=== PATIENT | male | born 1985 | race Caucasian/White ===

== ENCOUNTER 2022-11-20 16:05 | Observation (INO) ==
[2022-11-20] MEDS ORDERED: Acetaminophen IV 1 GM/100ML 1,000 MG/100 ML BAG IV ONE (16:38)
[2022-11-20] MEDS ORDERED: Ondansetron 4 mg VIAL 2 MG/ML 2 ml VIAL IV ONE (16:39)
[2022-11-20] MEDS ORDERED: Lorazepam PYXIS KEY PRN (16:40)
[2022-11-20] MEDS ORDERED: LORazepam 2 mg VIAL 1 ml IV PUSH ONE (16:40)
[2022-11-20 18:44] LABS: ABS Eosinophils 0.1 10^3/uL (0.0-0.5); ABS Lymphocytes 1.1 10^3/uL (1.0-4.8); ABS Monocytes 0.3 10^3/uL (0.0-1.1); ABS Neutrophils 5.2 10^3/uL (1.5-7.6); ABS Nucleated RBC 0.01 10^3/ul; Eosinophil % 1.5 %; Hematocrit 43.4 % (38-53); Hemoglobin 14.7 g/dL (13.2-16.3); Lymphocyte % 16.4 %; Mean Corpuscular Hemoglobin 30.2 pg (27-33); Mean Corpuscular Hgb Conc 33.9 g/dL (31-36); Mean Corpuscular Volume 89.1 fL (80-97); Mean Platelet Volume 7.5 fL (7.5-11.2); Nucleated Red Blood Cells % 0.1 /100 WBC (0.0-0.4); Platelet Count 289 10^3/uL (150-450); Red Blood Count 4.88 10^6/uL (4.06-5.63); Red Cell Distribution Width 13.4 % (12-17); White Blood Count 6.8 10^3/uL (3.6-10.2)
[2022-11-20 19:04] LABS: Albumin 4.8 g/dL (3.2-5.2); Albumin/Globulin Ratio 1.6 (1-3); C Reactive Protein 1.13 mg/L (<8.01); Calcium 10.4 mg/dL (8.6-10.3); Creatinine, Serum 0.97 mg/dL (0.67-1.17); Potassium 4.2 mmol/L (3.5-5.0); Total Bilirubin 1.2 mg/dL (0.2-1.0); Total Protein 7.8 g/dL (6.4-8.9); eGFR CKD-EPI 103.8 (>60)
[2022-11-20] MEDS ORDERED: Morphine 4 MG/ML VIAL (1 ml) IV ONE (19:35)
[2022-11-20 20:31] LABS: Erythrocyte Sed Rate 4 mm/Hr (0-14)
[2022-11-21] MEDS ORDERED: Lactated Ringers 1000 ml BAG 1,000 ML IV ONE (00:45)
[2022-11-21] MEDS: HYDROmorphone 1 MG/1 ML SYRINGE IV SLOW PU PRN ×2 (01:03→05:07)
[2022-11-21] MEDS ORDERED: Naloxone Nasal Spray 4 MG/0.1 ML NASAL.SPR INTRANASAL PRN (02:20)
[2022-11-21] MEDS ORDERED: Enoxaparin 40 MG/0.4 ML SYR SUBCUT SCH (03:00)
[2022-11-21] MEDS ORDERED: Polyethylene Glycol 3350 17 GM PACKET PO PRN (03:49)
[2022-11-21] MEDS ORDERED: Senna TAB 8.6 mg TAB PO PRN (03:49)
[2022-11-21] MEDS ORDERED: Acetaminophen IV 1 GM/100ML 1,000 MG/100 ML BAG IV PRN (03:50)
[2022-11-21 06:00] LABS: ABS Lymphocytes 1.6 10^3/uL (1.0-4.8); ABS Monocytes 0.4 10^3/uL (0.0-1.1); ABS Neutrophils 4.9 10^3/uL (1.5-7.6); ABS Nucleated RBC 0.01 10^3/ul; Eosinophil % 0.2 %; Hematocrit 40.1 % (38-53); Hemoglobin 13.7 g/dL (13.2-16.3); Lymphocyte % 23.6 %; Mean Corpuscular Hemoglobin 30.4 pg (27-33); Mean Corpuscular Hgb Conc 34.2 g/dL (31-36); Mean Corpuscular Volume 88.9 fL (80-97); Mean Platelet Volume 7.3 fL (7.5-11.2); Nucleated Red Blood Cells % 0.1 /100 WBC (0.0-0.4); Platelet Count 292 10^3/uL (150-450); Red Blood Count 4.51 10^6/uL (4.06-5.63); Red Cell Distribution Width 13.3 % (12-17)
[2022-11-21 06:43] LABS: Calcium 9.7 mg/dL (8.6-10.3); Creatinine, Serum 1.13 mg/dL (0.67-1.17); Potassium 4.2 mmol/L (3.5-5.0); eGFR CKD-EPI 86.4 (>60)
[2022-11-21] MEDS ORDERED: oxyCODONE SR 10 mg TAB PO ONE (10:34)
[2022-11-21 15:08] VITALS: BP 126/77
== END 2022-11-21 17:00 | disposition home or self-care (01) ==
LOC: ED 16:05 → EDHOLD 16:05 → SUATTDRO 23:15 → MED 11-21 14:55
PROVIDERS: ADMIT Internal Medicine; ATTEND Internal Medicine